=== PATIENT | female | born 1960 | race Caucasian/White ===

== ENCOUNTER 2022-04-28 08:18 | Outpatient (CLI) | payer BC, SELFPAY ==
[2022-04-28 20:29] LABS: Albumin Level 4.3 g/dL (3.5-5.1); Anion Gap 12 mmol/L (8-16); Blood Urea Nitrogen 11 mg/dL (7-17); Calcium 9.1 mg/dL (8.4-10.2); Carbon Dioxide 27 mmol/L (22-30); Chloride 99 mmol/L (98-107); Estimated Glomerular Filt Rate 57; Glucose 85 mg/dL (65-110); Phosphorus 3.2 mg/dL (2.5-4.5); Potassium 3.8 mmol/L (3.4-5.0); Sodium 138 mmol/L (137-145)
== END 2022-04-28 08:19 | disposition home or self-care (01) ==
LOC: ANHGOSHLAB 08:19
PROVIDERS: PCP Emergency Medicine; Visit Provider Emergency Medicine
DX: R79.89 Other specified abnormal findings of blood chemistry (principal)
CPT/HCPCS: 36415; 80069